=== PATIENT | male | born 2005 | race Caucasian/White ===

== ENCOUNTER 2025-02-15 19:48 | Emergency (ER) | payer BC ==
[~2025-02-15] VITALS: Ht 177.8 cm; Wt 88.9 kg
[2025-02-15 20:27] LABS: BASOPHILS 0.4 % (0.2-1.2); EOSINOPHILS 1.8 % (0.8-7.0); LYMPHOCYTES 36.7 % (21.8-53.1); MCH 29.7 PG (25.7-32.2); MCHC 34.9 g/dL (32.3-36.5); MCV 85.1 fL (79.0-92.2); MONOCYTES 10.2 % (5.3-12.2); NEUTROPHILS 50.6 % (34.0-67.9); RBC 5.38 M/uL (4.63-6.08)
[2025-02-15] MEDS ORDERED: KETOROLAC TROMETHAMINE 15 MG/ML VIAL IV ONE ×2 (20:30→21:15)
[2025-02-15 20:37] LABS: ALT (SGPT) 16.0 U/L (14-59); AST (SGOT) 17.0 U/L (15-37); GLOMERULAR FILTRATION RATE,EST 93.0 mL/min (>60); PROTEIN, TOTAL 7.5 g/dL (6.4-8.2); UREA NITROGEN 15.0 mg/dL (7-18)
[2025-02-15] MEDS ORDERED: LACTATED RINGER'S 1,000 ML IV ONE (21:15)
[2025-02-15 21:24] LABS: BLOOD/HGB, URINE LARGE (Negative); KETONE, URINE NEGATIVE (Negative); LEUK ESTERASE, URINE NEGATIVE (negative); NITRITE, URINE NEGATIVE (negative)
[2025-02-15 21:40] LABS: CRYSTALS, URINE NONE SEEN (0-1+); EPITHELIAL CELLS, URINE NONE SEEN /lpf (0-1+)
[2025-02-15 21:41] LABS: BACTERIA, URINE RARE /hpf (negative); CASTS, URINE NONE SEEN \\lpf; REFLEX CULTURE, URINE No (No)
[2025-02-16] MEDS ORDERED: HYDROCODON-ACE1 EA10 PO (00:12)
[2025-02-16] MEDS ORDERED: FLOMAX0.4 MG PO (00:13)
[2025-02-16] MEDS ORDERED: TAMSULOSIN HCL 0.4 MG CAP PO ONE (00:15)
[2025-02-16] MEDS ORDERED: HYDROCODONE BIT/ACETAMINOPHEN 5/325 MG 1 TAB HOME.PACK PO ONE ×2 (00:15→00:20)
[2025-02-16] MEDS ORDERED: TAMSULOSIN HCL 0.4 MG CAP ONE (00:21)
[2025-02-16 00:35] VITALS: BP 110/96
== END 2025-02-16 00:35 | disposition home or self-care (01) ==
LOC: ED 19:48
PROVIDERS: Internal Medicine
DX: N13.2 Hydronephrosis with renal and ureteral calculous obstruction (principal)
CPT/HCPCS: 36415; 74176; 80053; 81001; 85025; 96361; 96374; 96375; 96376; 99284-25; A9270; J1885; J2405; J7121